=== PATIENT | male | born 1985 | race Hispanic/Latino ===

== ENCOUNTER 2021-07-19 10:57 | Emergency (ER) | payer OTHER ==
[2021-07-19] VITALS (12 sets, daily range): BP systolic 111–123; BP diastolic 76–87
[~2021-07-19] VITALS: Ht 167.6 cm; Wt 83.0 kg
== END 2021-07-19 13:53 | disposition home or self-care (01) | DRG 556 ==
LOC: ED 10:57
DX: M25.531 Pain in right wrist (principal); W19.XXXA Unspecified fall, initial encounter; Y93.89 Activity, other specified; Y92.73 Farm field as the place of occurrence of the external cause; Y99.0 Civilian activity done for income or pay; Z98.890 Other specified postprocedural states